=== PATIENT | female | born 1945 | race Two or more races ===

== ENCOUNTER → 2016-07-25 | Outpatient (CLI) | payer OTHER ==
--- NOTE | ~2016-07-25 | US6 ---
[facility] A Service of [facility] RADIOLOGY TEXT RESULTS PATIENT: BRODY,SEE LOCATION: [facility] : 45 UNIT #: [id number] AGE: [address]: JOSELINE BURNETT MD SEX: F ORDER DR: [id number] [facility] [address] [place], [place] [address] [id number] O MR#: [id number] Acc #: [id number] NAME: BRODY, SEE : 1945 SEX: F STUDY DATE/TIME: 07/25/2016 10:20 UNIT: [facility]US ROOM: STUDY DESCRIPTION: US Abdominal Limited Attending Physician: Joseline Burnett M.D. Referring Physician: Joseline Burnett M.D. Ordering Physician: Joseline Burnett M.D. Primary Care Physician: Primary Care Physician No MEDICAL IMAGING REPORT This report is preliminary unless electronic signature is present EXAM Right upper quadrant abdominal ultrasound INDICATIONS Elevated liver enzyme levels. PROCEDURE José-scale and Doppler imaging right upper quadrant of the abdomen COMPARISON None. FINDINGS Visualized portions of pancreas are unremarkable. Common duct measures up to 6 mm. Unremarkable gallbladder. Liver measures 11.8 cm. Right kidney measures 9.2 cm and is normal. There are 2 small hyperechoic foci, largest in the right lobe measuring 6 mm. This shows some posterior shadowing, and probably represents calcification. IMPRESSION No acute findings in the right upper quadrant. No specific finding to explain the patient's elevated liver enzyme levels. Dictated by... Jose E Davila M.D. THIS IS AN ELECTRONICALLY VERIFIED REPORT Jose E Davila M.D. at 07/29/2016 9:54 AM BURKE/cuca TD: 07/25/2016 13:54 JOB #: [id number] [facility] A Service of [facility] RADIOLOGY TEXT RESULTS PATIENT: BRODY,SEE LOCATION: [facility] : 45 UNIT #: [id number] AGE: [address]: JOSELINE BURNETT MD SEX: F ORDER DR: MEDICAL IMAGING REPORT Page 1 of 1 COPY
== END | disposition home or self-care (01) ==
LOC: CGUS 09:56
DX: R74.0 Nonspecific elevation of levels of transaminase and lactic acid dehydrogenase [LDH] (principal)
CPT/HCPCS: 76705